=== PATIENT | female | born 1960 | race Caucasian/White ===

== ENCOUNTER → 2017-04-02 | Outpatient (CLI) | payer BC | END | disposition home or self-care (01) | LOC: C.PAPS 11:47 | PROVIDERS: ATTEND Obstetrics & Gynecology | DX: Z01.419 Encounter for gynecological examination (general) (routine) without abnormal findings (principal) ==

== ENCOUNTER → 2017-04-09 | Outpatient (CLI) | payer BC ==
--- NOTE | 2017-04-10 15:17 | MAMMOGRAPHY REPORT ---
BILATERAL DIGITAL SCREENING MAMMOGRAM TOMOSYNTHESIS WITH CAD: 04/09/2017 CLINICAL HISTORY: Routine screening examination. TECHNIQUE: Breast tomosynthesis in addition to standard 2D mammography was performed. Current study was also evaluated with a Computer Aided Detection (CAD) system. COMPARISON: Comparison is made to exams dated: 02/25/2016 mammogram, 02/18/2015 mammogram, 12/01/2013 kellie mogram, 11/28/2012 mammogram, 11/28/2011 mammogram, and 11/22/2010 mammogram - [facility]. BREAST COMPOSITION: The tissue of both breasts is extremely dense, which lowers the sensitivity of m ammography. FINDINGS: There are benign scattered round and punctate calcifications in both breasts. No suspicio us mass, architectural distortion or cluster of suspicious microcalcifications is seen. IMPRESSION: ACR BI-RADS CATEGORY 2: BENIGN There is no mammographic evidence of malignancy. A 1 year screening mammogram is recommended. The pa tient will receive written notification of the results. Approximately 10% of breast cancers are not detected with mammography. A negative mammographic report should not delay biopsy if a clinically suggestive mass is present. Aditi Boggs M.D. ay/:04/09/2017 16:42:07 Crossbow Maker: Janel REDDY(R)(M), [facility] letter sent: Normal 1/2 BI-RADS Code: ACR BI-RADS Category 2: Benign
== END | disposition home or self-care (01) ==
LOC: C.MAMM 14:18
PROVIDERS: ATTEND Obstetrics & Gynecology
DX: Z12.31 Encounter for screening mammogram for malignant neoplasm of breast (principal)

== ENCOUNTER → 2017-07-28 | Outpatient (CLI) | payer OTHER ==
--- NOTE | 2017-07-28 15:30 | DIAGNOSTIC IMAGING REPORT ---
CHEST 2 VIEWS ROUTINE CLINICAL HISTORY: 57 years-old Female presenting with DIZZINESS,GIDDINESS. TECHNIQUE: PA and lateral views of the chest were obtained. COMPARISON: None. FINDINGS: Atherosclerosis of the aortic arch. Cardiac silhouette normal in size. Lungs and pleural spaces clear. Osseous structures normal. Upper abdomen normal. IMPRESSION: 1. No acute cardiopulmonary disease. Electronically signed by: Elian Jean M.D. 07/28/2017 3:28 PM Dictated Date/Time: 07/28/2017 3:28 PM
== END | disposition home or self-care (01) ==
LOC: C.RAD 15:08
PROVIDERS: ATTEND Family Medicine Hospice and Palliative Medicine
DX: R53.83 Other fatigue (principal); R42 Dizziness and giddiness

== ENCOUNTER 2017-08-04 15:15 | Observation (INO) | payer OTHER ==
[~2017-08-04] VITALS: Ht 157.5 cm; Wt 65.8 kg
[2017-08-04 15:21] VITALS: Ht 157.5 cm; Wt 65.8 kg
[2017-08-04] MEDS ORDERED: SODIUM CHLORIDE 0.9% 1000ML 1,000 ML IV STA ×2 (15:38→17:40)
--- NOTE | 2017-08-04 15:40 | EMERGENCY ROOM VISIT NOTE ---
History Report prepared by Alesha: Nick Dickerson Under the Supervision of: Dr. Figueroa Guerrero M.D. First contact with patient: 15:27 Chief Complaint: RESPIRATORY PROBLEMS Stated Complaint: POSSIBLE PE Nursing Triage Summary: pt reports PCP told pt to come in for eval and treatment of poss PE or PVX, pt reprots cough since 07/18 and has had pain in scapular region X " a couple of days " pt reports increased exertional sob and "feels like heart is racing " History of Present Illness The patient is a 57 year old female who presents to the Emergency Room with complaints of shortness of breath that started prior to arrival. She states she has been sick since 07/18/2017, was seen at the [facility] and was told to come to the ED. She reports lightheadedness. She denies chest pain, weakness in arms and legs, fevers, urinary symptoms, and bowel issues. She denies recent travel, history of cardiac problems, and diabetes. She took prednisone 1 week ago and takes Crestor 10 mg regularly. Of note, the patient has nodules on her thyroid and states her hormones levels have been normal. 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 Review of Systems See HPI for pertinent positives & negatives. A total of 10 systems reviewed and were otherwise negative. Past Medical & Surgical Medical Problems: (1) Dizziness (2) ST segment depression Social History Smoking Status: Never Smoker Marital Status: Housing Status: lives with family Current/Historical Medications Scheduled Metoprolol Tartrate (Lopressor) (Lopressor), 50 MG PO BID Rosuvastatin Calcium (Crestor), 10 MG PO DAILY Allergies Coded Allergies: No Known Allergies (Unverified , 08/04/17) Physical Exam Vital Signs Date Time Temp Pulse Resp B/P (MAP) Pulse Ox O2 Delivery O2 Flow Rate FiO2 08/04/17 19:31 Room Air 08/04/17 18:21 102 20 157/119 98 Room Air 08/04/17 18:14 127 08/04/17 17:48 130 20 170/112 98 Room Air 08/04/17 16:45 127 17 178/116 99 Room Air 08/04/17 16:25 130 08/04/17 15:21 36.8 130 20 187/95 97 Room Air Physical Exam GENERAL: Patient is anxious appearing and in moderate distress. HEENT: No acute trauma, normocephalic atraumatic, mucous membranes moist, no nasal congestion, no scleral icterus. NECK: No stridor, no adenopathy, no meningismus, trachea is midline. LUNGS: Mild SOB. Clear to auscultation and equal bilaterally. No wheeze, no rhonchi. HEART: Tachycardiac. Regular rhythm. No murmurs, rubs, gallops appreciated. ABDOMEN: Soft, nontender, bowel sounds positive, no masses appreciated, no peritonitis. BACK: No midline tenderness, no CVA tenderness EXTREMITIES: Normal motion all extremities, no cyanosis, no edema. NEUROLOGIC: Alert and oriented, no acute motor or sensory deficits, no focal weakness, cranial nerves grossly intact. SKIN: No rash, no jaundice, no diaphoresis. Medical Decision & Procedures ER Provider Diagnostic Interpretation: Radiology results and stated below per my review and radiologist interpretation: CHEST ONE VIEW PORTABLE CLINICAL HISTORY: Chest pain. COMPARISON STUDY: Chest radiograph July 28, 2017. FINDINGS: Lung volumes are normal. Lungs are clear. There is no evidence for pulmonary edema. Cardiomediastinal silhouette is normal. Pulmonary vascularity is normal. IMPRESSION: No acute cardiopulmonary findings. Electronically signed by: Jt Zazueta M.D. 08/04/2017 5:08 PM Dictated Date/Time: 08/04/2017 5:[address] ANGIOGRAPHY OF THE CHEST, PULMONARY EMBOLUS PROTOCOL CLINICAL HISTORY: Tachycardia and short of breath. COMPARISON STUDY: Chest radiograph July 28, 2017. TECHNIQUE: Following IV administration of 108 mL of Optiray-320, helical axial images of the chest were obtained utilizing the pulmonary embolus protocol. Maximal intensity projections and sagittal and coronal reformats were viewed on an independent 3D workstation. IV contrast was administered without complication. A dose lowering technique was utilized adhering to the principles of ALARA. CT DOSE: 320.25 mGy.cm FINDINGS: No pulmonary emboli are identified although the segmental and subsegmental pulmonary arteries are suboptimally assessed due to respiratory motion. The size of the heart is normal. There is no pericardial effusion. There is no evidence for thoracic aortic dissection. There is no thoracic lymphadenopathy. The central airways are patent. There is no consolidation to suggest pneumonia. No pneumothorax or pleural effusion is noted. Bony thorax and upper abdomen are unremarkable. IMPRESSION: 1. No pulmonary emboli identified although segmental and subsegmental pulmonary arteries suboptimally assessed due to respiratory motion. 2. No acute intrathoracic findings. Electronically signed by: Jt Zazueta M.D. 08/04/2017 5:18 PM Dictated Date/Time: 08/04/2017 5:10 PM Laboratory Results Test 08/04/17 15:35 08/04/17 15:48 Immature Granulocyte % (Auto) 0.4 % White Blood Count 8.51 K/uL (4.8-10.8) Red Blood Count 4.91 M/uL (4.2-5.4) Hemoglobin 15.0 g/dL (12.0-16.0) Hematocrit 43.7 % (37-47) Mean Corpuscular Volume 89.0 fL (80-100) Mean Corpuscular Hemoglobin 30.5 pg (25-34) Mean Corpuscular Hemoglobin Concent 34.3 g/dl (32-36) Platelet Count 311 K/uL (130-400) Mean Platelet Volume 8.9 fL (7.4-10.4) Neutrophils (%) (Auto) 60.7 % Lymphocytes (%) (Auto) 28.8 % Monocytes (%) (Auto) 9.2 % Eosinophils (%) (Auto) 0.8 % Basophils (%) (Auto) 0.1 % Neutrophils # (Auto) 5.17 K/uL (1.4-6.5) Lymphocytes # (Auto) 2.45 K/uL (1.2-3.4) Monocytes # (Auto) 0.78 K/uL (0.11-0.59) Eosinophils # (Auto) 0.07 K/uL (0-0.5) Basophils # (Auto) 0.01 K/uL (0-0.2) Immature Granulocyte # (Auto) 0.03 K/uL (0.00-0.02) Erythrocyte Sedimentation Rate 14 mm/hr (0-21) C-Reactive Protein < 0.29 mg/dl (0-0.29) Thyroid Stimulating Hormone (TSH) 2.440 uIu/ml (0.300-4.500) Bedside Hemoglobin 15.0 g/dl (12.0-16.0) Bedside Hematocrit 44 % (37-47) Bedside Sodium 143 mEq/L (135-144) Bedside Potassium 3.4 mEq/L (3.3-5.0) Bedside Chloride 102 mEq/L (101-112) Bedside Total CO2 25 mEq/l (24-31) Bedside Blood Urea Nitrogen 8 mg/dl (7-18) Bedside Creatinine 0.6 mg/dl (0.6-1.3) Bedside Glucose (other) 134 mg/dl (70-99) Bedside Ionized Calcium (Enedina) 1.10 mmol/l (1.12-1.32) Laboratory results as reviewed by me. Medications Administered Medications (Trade) Dose Ordered Sig/Becca Route Start Time Stop Time Status Last Admin Dose Admin Sodium Chloride 1,000 ml @ 999 mls/hr Q1H1M STAT IV 08/04/17 15:38 08/04/17 16:38 DC 08/04/17 15:38 999 MLS/HR Sodium Chloride 1,000 ml @ 999 mls/hr Q1H1M STAT IV 08/04/17 17:40 08/04/17 18:40 DC 08/04/17 17:53 999 MLS/HR Adenosine (Adenosine Iv) 6 mg NOW STAT IV 08/04/17 17:48 08/04/17 17:49 DC 08/04/17 17:52 6 MG Metoprolol Tartrate (Lopressor Iv) 5 mg NOW STAT IV 08/04/17 18:04 08/04/17 18:05 DC 08/04/17 18:14 5 MG ECG Per My Interpretation Indication: SOB/dyspnea Rate (beats per minute): 131 Rhythm: sinus tachycardia Findings: ST elevation, no ectopy, other (Deep lateral ST depression. No ST elevation.) Change: EKG: Electrocardiogram per my interpretation. ED Course 1527: The patient was evaluated in room C11. A complete history and physical exam was performed. 1730: I checked on the patient and she is tachycardiac. 1740: I discussed the patient's case with Dr. Hardin - Cardiology. He suggests Adenosine; if no success, he suggests to use Lopressor; if minimal or no success, he suggests admission. The patient will be evaluated for further treatment and disposition. The patient will be evaluated for further treatment and disposition. 1830: Upon reevaluation, the patient is doing well. Discussed results and treatment plan with the patient. She verbalized understanding and agreement with the treatment plan. The patient will be evaluated for further management. Medical Decision Differential: Infectious, Reactive Airway Disease, Pneumonia, Pneumothorax, COPD , CHF, ACS, Pulmonary Embolism, MSK, GI, Dissection, amongst other etiologies entertained. Pleasant 57 yr old female with flu like illness 2 weeks ago, then post treatment with prednisone. Arrives with worsening SHOB, dyspnea and fatigue. Quite tachy with variable HR 120-130 and essentially stuck in that range. Tremulous which is chronic for patient. Given 2 L NSS without much change in HR. EKG with deep lateral depressions without chest pain. Initial Trop negative. With symptoms felt imaging required and not low risk for dimer. Fortunately CT PE negative. Labs unremarkable otherwise. TSH OK and unlikely toxidrome given. Reviewed with cards and after tried Adenosine which resulted in short heart block, mild widening of P to P distance then back to tachycardia. Given Lopressor with vast improvement in HR. Suspect this is catecholamine response secondary to prednisone use, however with EKG depressions and Cards input seems reasonable to bring in for further work-up and evaluation. Family comfortable with this plan. Discussed over cell phone with Daughter who is physician. Medication Reconcilliation Current Medication List: was personally reviewed by me Blood Pressure Screening Patient's blood pressure: Elevated blood pressure Blood pressure disposition: Elevated BP felt to be situational Consults Time Called: 1730 Consulting Physician: Dr. Hardin - Cardiology Returned Call: 1740 Discussed the patient's case with Dr. Hardin. He suggests Adenosine; if no success, he suggests to use Lopressor; if minimal or no success, he suggests admission. The patient will be evaluated for further treatment and disposition. Impression Primary Impression: Tachycardia Additional Impressions: Catecholamine Response Hypertension Scribe Attestation The scribe's documentation has been prepared under my direction and personally reviewed by me in its entirety. I confirm that the note above accurately reflects all work, treatment, procedures, and medical decision making performed by me. Departure Information Prescriptions Metoprolol Tartrate (Lopressor) (Lopressor) 50 Mg Tab 50 MG PO BID, #60 TAB Prov: Mario Bowen D.O. 08/05/17 Referrals Pro,Jeet Murry M.D. (PCP) Patient Instructions [facility] Problem Qualifiers
[2017-08-04 15:50] LABS: BASO % 0.1 %; BASO ABS # 0.01 K/uL (0-0.2); EOS % 0.8 %; EOS ABS # 0.07 K/uL (0-0.5); HEMATOCRIT 43.7 % (37-47); IG# 0.03 K/uL (0.00-0.02); LYMPH % 28.8 %; LYMPH ABS # 2.45 K/uL (1.2-3.4); MEAN CORPUSCULAR HEMOGLOBIN 30.5 pg (25-34); MEAN CORPUSCULAR HGB CONC 34.3 g/dl (32-36); MEAN PLATELET VOLUME 8.9 fL (7.4-10.4); MONO % 9.2 %; MONO ABS # 0.78 K/uL (0.11-0.59); NEUT % 60.7 %; NEUT ABS # 5.17 K/uL (1.4-6.5); PLATELET COUNT 311 K/uL (130-400); RED CELL DISTRIBUTION WIDTH CV 12.3 % (11.5-14.5); RED CELL DISTRIBUTION WIDTH SD 39.2 fL (36.4-46.3); WHITE BLOOD COUNT 8.51 K/uL (4.8-10.8)
[2017-08-04 16:00] LABS: ISTAT CREATININE 0.6 mg/dl (0.6-1.3); ISTAT IONIZED CALCIUM 1.1 mmol/l (1.12-1.32); ISTAT POTASSIUM 3.4 mEq/L (3.3-5.0)
[2017-08-04] MEDS ORDERED: OPTIRAY 320 IV PRN (16:00)
[2017-08-04 16:07] LABS: BLOOD UREA NITROGEN 8 mg/dl (7-18); CARBON DIOXIDE 26 mmol/L (21-32); CREATININE 0.81 mg/dl (0.60-1.20); GLUCOSE 128 mg/dl (70-99); POTASSIUM 3.3 mmol/L (3.5-5.1); SODIUM 140 mmol/L (136-145)
[2017-08-04] MEDS ORDERED: CRS/10 PO (16:20)
--- NOTE | 2017-08-04 17:09 | DIAGNOSTIC IMAGING REPORT ---
CHEST ONE VIEW PORTABLE CLINICAL HISTORY: Chest pain. COMPARISON STUDY: Chest radiograph July 28, 2017. FINDINGS: Lung volumes are normal. Lungs are clear. There is no evidence for pulmonary edema. Cardiomediastinal silhouette is normal. Pulmonary vascularity is normal. IMPRESSION: No acute cardiopulmonary findings. Electronically signed by: Jt Zazueta M.D. 08/04/2017 5:08 PM Dictated Date/Time: 08/04/2017 5:07 PM
--- NOTE | 2017-08-04 17:19 | DIAGNOSTIC IMAGING REPORT ---
CT ANGIOGRAPHY OF THE CHEST, PULMONARY EMBOLUS PROTOCOL CLINICAL HISTORY: Tachycardia and short of breath. COMPARISON STUDY: Chest radiograph July 28, 2017. TECHNIQUE: Following IV administration of 108 mL of Optiray-320, helical axial images of the chest were obtained utilizing the pulmonary embolus protocol. Maximal intensity projections and sagittal and coronal reformats were viewed on an independent 3D workstation. IV contrast was administered without complication. A dose lowering technique was utilized adhering to the principles of ALARA. CT DOSE: 320.25 mGy.cm FINDINGS: No pulmonary emboli are identified although the segmental and subsegmental pulmonary arteries are suboptimally assessed due to respiratory motion. The size of the heart is normal. There is no pericardial effusion. There is no evidence for thoracic aortic dissection. There is no thoracic lymphadenopathy. The central airways are patent. There is no consolidation to suggest pneumonia. No pneumothorax or pleural effusion is noted. Bony thorax and upper abdomen are unremarkable. IMPRESSION: 1. No pulmonary emboli identified although segmental and subsegmental pulmonary arteries suboptimally assessed due to respiratory motion. 2. No acute intrathoracic findings. Electronically signed by: Jt Zazueta M.D. 08/04/2017 5:18 PM Dictated Date/Time: 08/04/2017 5:10 PM
[2017-08-04] MEDS ORDERED: ADENOSINE IV SOLN 3 MG/ML 2 ML VIAL IV STA (17:48)
[2017-08-04] MEDS ORDERED: METOPROLOL TARTRATE 1 MG/ML VIAL IV STA (18:04)
--- NOTE | 2017-08-04 18:24 | History and Physical ---
History & Physical Date & Time of Service: Aug 04, 2017 at 18:24 Chief Complaint: Dizziness Primary Care Physician: Jeet West M.D. History of Present Illness Source: patient Pleasant 57 yo female, who is a poor historian. It is very difficult to obtain information from her as she jumps from different points of her history and sometimes does not answer the questions. She appears anxious. Her is in the room and does help with the history. She says she has had intermittent dizziness for the past week. However, at 9 am today, patient reports feeling of lightheadedness when she was feeding her cats (friends). She denies vertigo, only complained of dizziness and like she was going to fall. She was unable to describe duration. she states it may have been a few minutes. The episode subsided but due to the fact that his has been ongoing, she decieded to call her and come to the [facility]. And there recommended to come to the ED. She states that she was recently given prednsione for 5 days which ended on for a possible bronchitis. She also states that she is very active and recently had a brisk 50 minute walk which she tolerated without a problem yesterday. Past Medical History 1.Dyslipidemia 2. History of asthma (Z87.09) 3. History of hypothyroidism (Z86.39) 4. History of varicella (Z86.19) 5. H/O fatty liver Surgical History 1. History of Biopsy Breast Open 2. History of Biopsy Thyroid Using Percutaneous Core Needle 3. History of Oral Surgery Tooth Extraction Family History 1. Family history of Lung Cancer 2. Family history of Cardiovascular Disorder Social History Alcohol Marital History - Currently Never smoker Parentage Uses Safety Equipment - Seatbelts Current Meds 1. Rosuvastatin Calcium 10 MG Oral Tablet; TAKE 1 TABLET DAILY Allergies 1. Bactrim TABS Family History as stated above. Social History Smoking Status: Never Smoker Alcohol Use: socially Marital Status: Immunizations History of Influenza Vaccine: Unknown History of Tetanus Vaccine?: Unknown History of Pneumococcal: Unknown History of Hepatitis B Vaccine: Unknown Multi-Drug Resistant Organisms History of MDRO: No Allergies Coded Allergies: No Known Allergies (Unverified , 08/04/17) Home Medications Scheduled Rosuvastatin Calcium (Crestor), 10 MG PO DAILY Review of Systems Constitutional: No fever, No chills Eyes: No worsening of vision ENT: No hearing loss, No unusual epistaxis Respiratory: + cough, No sputum, No wheezing Cardiovascular: No chest pain, No orthopnea Abdomen: No pain, No nausea Musculoskeletal: No joint pain, No muscle pain Neurologic: + problem reported (dizziness), No memory loss, No paralysis, No weakness Psychiatric: No depression symptoms, No anhedonism Endocrine: No fatigue Hematologic / Lymphatic: No abnormal bleeding/bruising Integumentary: No rash Allergic / Immunologic: No environmental allergies Physical Exam Vital Signs Date Time Temp Pulse Resp B/P (MAP) Pulse Ox O2 Delivery O2 Flow Rate FiO2 08/04/17 18:21 102 20 157/119 98 Room Air 08/04/17 18:14 127 08/04/17 17:48 130 20 170/112 98 Room Air 08/04/17 16:45 127 17 178/116 99 Room Air 08/04/17 16:25 130 08/04/17 15:21 36.8 130 20 187/95 97 Room Air General Appearance: WD/WN, no apparent distress Head: normocephalic Eyes: normal inspection ENT: normal ENT inspection, hearing grossly normal Neck: supple, no adenopathy Respiratory/Chest: chest non-tender, lungs clear, normal breath sounds Cardiovascular: no edema, + tachycardia (sinus tachycardia) Abdomen/GI: normal bowel sounds, non tender, soft Back: normal inspection Neurologic/Psych: risk assessment analyst II-XII nml as tested, alert, oriented x 3 Skin: normal color Lymphatic: no adenopathy Diagnostics Laboratory Results Results Past 24 Hours Test 08/04/17 15:35 08/04/17 15:48 Range/Units White Blood Count 8.51 4.8-10.8 K/uL Red Blood Count 4.91 4.2-5.4 M/uL Hemoglobin 15.0 12.0-16.0 g/dL Hematocrit 43.7 37-47 % Mean Corpuscular Volume 89.0 80-100 fL Mean Corpuscular Hemoglobin 30.5 25-34 pg Mean Corpuscular Hemoglobin Concent 34.3 32-36 g/dl Platelet Count 311 130-400 K/uL Mean Platelet Volume 8.9 7.4-10.4 fL Neutrophils (%) (Auto) 60.7 % Lymphocytes (%) (Auto) 28.8 % Monocytes (%) (Auto) 9.2 % Eosinophils (%) (Auto) 0.8 % Basophils (%) (Auto) 0.1 % Neutrophils # (Auto) 5.17 1.4-6.5 K/uL Lymphocytes # (Auto) 2.45 1.2-3.4 K/uL Monocytes # (Auto) 0.78 0.11-0.59 K/uL Eosinophils # (Auto) 0.07 0-0.5 K/uL Basophils # (Auto) 0.01 0-0.2 K/uL RDW Standard Deviation 39.2 36.4-46.3 fL RDW Coefficient of Variation 12.3 11.5-14.5 % Immature Granulocyte % (Auto) 0.4 % Immature Granulocyte # (Auto) 0.03 0.00-0.02 K/uL Erythrocyte Sedimentation Rate 14 0-21 mm/hr Sodium Level 140 136-145 mmol/L Potassium Level 3.3 3.5-5.1 mmol/L Chloride Level 104 98-107 mmol/L Carbon Dioxide Level 26 21-32 mmol/L Anion Gap 11.0 20.0 16-25 mmol/L Blood Urea Nitrogen 8 7-18 mg/dl Creatinine 0.81 0.60-1.20 mg/dl Est Creatinine Clear Calc Drug Dose 68.4 ml/min Estimated GFR () 92.8 Estimated GFR (Non- 80.1 BUN/Creatinine Ratio 10.4 10-20 Random Glucose 128 70-99 mg/dl Calcium Level 9.0 8.5-10.1 mg/dl Troponin I < 0.015 0-0.045 ng/ml C-Reactive Protein < 0.29 0-0.29 mg/dl Thyroid Stimulating Hormone (TSH) 2.440 0.300-4.500 uIu/ml Bedside Hemoglobin 15.0 12.0-16.0 g/dl Bedside Hematocrit 44 37-47 % Bedside Sodium 143 135-144 mEq/L Bedside Potassium 3.4 3.3-5.0 mEq/L Bedside Chloride 102 101-112 mEq/L Bedside Total CO2 25 24-31 mEq/l Bedside Blood Urea Nitrogen 8 7-18 mg/dl Bedside Creatinine 0.6 0.6-1.3 mg/dl Bedside Glucose (other) 134 70-99 mg/dl Bedside Ionized Calcium (Enedina) 1.10 1.12-1.32 mmol/l Diagnostic Radiology CHEST ONE VIEW PORTABLE CLINICAL HISTORY: Chest pain. COMPARISON STUDY: Chest radiograph July 28, 2017. FINDINGS: Lung volumes are normal. Lungs are clear. There is no evidence for pulmonary edema. Cardiomediastinal silhouette is normal. Pulmonary vascularity is normal. IMPRESSION: No acute cardiopulmonary findings. EKG Sinus tachycardia Possible Left atrial enlargement ST & T wave abnormality, consider anterior ischemia Abnormal ECG No previous ECGs available Impression Assessment and Plan Hypertensive Urgency in the setting Lightheadedness with mild SOB on exertion and at rest in a 57 yo female with dyslipidemia will admit under obs Unsure as to the history of SOB as patient has been active over the course of this week, Example: walking over 50 minutes yesterday. will monitor torponin x3 will obtain echo will consult cardio will treat hypertension with goal of decreasing BP by 25% Main objective issue found on the hsitory was her elevated hypertension. Patient received 5 mg of IV labetalol and will receive and additional 5 mg by me as her SBP was above 175 and diastolic above 100. Likely uncontrolled hypertension management as noted above. Dyslipidemia continue home meds. Level of Care Telemetry Advanced Directives Existing Advance Directive: No Existing Living Will: No Existing Power of Automation Tender: No Resuscitation Status FULL RESUSCITATION VTE Prophylaxis VTE Risk Assessment Done? Y/N: Yes Risk Level: Very Low Given or contraindicated: Treatment not indicated (likely short hospital stay) Social Service Consult None Apply
[2017-08-04] MEDS ORDERED: ASPIRIN 325 MG ECTAB PO ONE (19:45)
[2017-08-04] MEDS ORDERED: IV FLUIDS COMPLETED PRN (20:15)
[2017-08-04] MEDS ORDERED: NURSING VERBAL MED ORDER STA (20:42)
[2017-08-04] MEDS ORDERED: METOPROLOL TARTRATE 1 MG/ML VIAL ONE (20:47)
[2017-08-04] MEDS ORDERED: ROSUVASTATIN CALCIUM 10 MG TAB PO SCH (21:00)
[2017-08-04] MEDS ORDERED: METOPROLOL TARTRATE 1 MG/ML VIAL IV ONE (21:00)
[2017-08-04 21:35] VITALS: BP 148/103
[2017-08-04 22:39] LABS: INFLUENZA A PCR Neg for Influ A (NEG); INFLUENZA B PCR Neg for Influ B (NEG)
[2017-08-04 23:33] VITALS: BP 129/86; PULSE 99; TEMP 37.3; O2SAT 97
[2017-08-05] VITALS (11 sets, daily range): BP systolic 147–162; BP diastolic 97–111; PULSE 80–112; TEMP 36.9–37.6; O2SAT 97–98
[2017-08-05] MEDS ORDERED: LABETALOL HCL IV 5 MG/ML 20ML IV PRN (04:45)
[2017-08-05] MEDS ORDERED: LABETALOL HCL IV 5 MG/ML 20ML IV ONE (04:50)
[2017-08-05 07:29] LABS: HEMATOCRIT 39.4 % (37-47); HEMOGLOBIN 13.8 g/dL (12.0-16.0); MEAN CELL VOLUME 87.8 fL (80-100); MEAN CORPUSCULAR HEMOGLOBIN 30.7 pg (25-34); MEAN PLATELET VOLUME 8.7 fL (7.4-10.4); PLATELET COUNT 263 K/uL (130-400); RED CELL DISTRIBUTION WIDTH CV 12.4 % (11.5-14.5); RED CELL DISTRIBUTION WIDTH SD 39.8 fL (36.4-46.3); WHITE BLOOD COUNT 7.59 K/uL (4.8-10.8)
[2017-08-05] MEDS ORDERED: METOPROLOL TARTRATE 25 MG TAB PO ONE (07:45)
[2017-08-05 08:05] LABS: CALCIUM 8.9 mg/dl (8.5-10.1); CREATININE 0.6 mg/dl (0.60-1.20); POTASSIUM 3.5 mmol/L (3.5-5.1)
[2017-08-05] MEDS ORDERED: METOPROLOL TARTRATE 25 MG TAB PO SCH ×2 (09:00→21:00)
--- NOTE | 2017-08-05 10:57 | Cardiology Consultation ---
Cardiology Consultation Date of Consultation: Aug 05, 2017. Requesting Physician: Dr. López Reason for Consultation: Tachycardia Pt evaluation today including: conversation w/ patient, conversation w/ family , physical exam, lab review, review of studies, review of inpatient medication list, conversation w/ attending History of Present Illness This is a very pleasant 57-year-old woman who presented yesterday with tachycardia. On my evaluation today her was present, her daughter is a resident in psychiatry and she was part of the conversation via a speaker cell phone connection. It seems that she has been feeling poorly for about 2 weeks, she has a feeling of lightheadedness although not presyncope and she has not had syncope. She has not been exercising regularly (normally she walks regularly) but did walk several days ago and did not have difficulty with that. She has been seen several times in the [facility] outpatient acute clinic, but I have not seen those records. She was treated with prednisone for 5 days, that stopped about 3 days ago. She does not feel that she has had a fever although she is not sure, she has not had orthopnea or PND or peripheral edema, she has not had exertional chest discomfort. She is not very aware of her heart rate, she knows she has been told that it is high but she cannot really describe it to me. She does not recall having a high heart rate in the past. Of note review of her outpatient office vital signs do not demonstrate a fast heart rate. In the emergency room she received adenosine which caused AV block but did not alter her heart rate, which was a sinus rate at about 130 bpm evidently. She was given beta-blockade on several occasions which did reduce her rate somewhat. Her blood pressure is also been quite elevated here, she reports that she has not had blood pressure elevation in the past and that is confirmed by outpatient records. Past Medical/Surgical History Hypercholesterolemia Thyroid nodules Social History Smoking Status: Never Smoker History of Alcohol Use: No Review of Systems Constitutional: No fever, No weight loss, No weakness Respiratory: No cough, No wheezing, No shortness of breath, No dyspnea on exertion Cardiac: No chest pain, No orthopnea, No PND, No edema, No palpitations Abdomen: No pain, No nausea, No vomiting, No diarrhea, No GI bleeding Female : No problem reported Neurologic: No paralysis, No weakness, No numbness/tingling, No balance problems Heme: No abnormal bleeding/bruising, No clotting problems Endo: No fatigue Skin: No problem reported All Other Systems: Reviewed and Negative Allergies Coded Allergies: No Known Allergies (Unverified , 08/04/17) Medications Current Inpatient Medications Medications (Trade) Dose Ordered Sig/Becca Route Start Time Stop Time Status Last Admin Dose Admin Ioversol (Optiray 320) 100 ml UD PRN IV 08/04/17 16:00 08/08/17 15:59 Rosuvastatin Calcium (Crestor Tab) 10 mg HS PO 08/04/17 21:00 09/03/17 20:59 08/04/17 22:34 10 MG Miscellaneous (Iv Fluids Completed) 1 ea PRN PRN N/A 08/04/17 20:15 08/04/18 20:14 Labetalol HCl (Normodyne IV) 5 mg Q4H PRN IV 08/05/17 04:45 09/04/17 04:44 Metoprolol Tartrate (Lopressor Tab) 25 mg BID PO 08/05/17 21:00 09/04/17 20:59 Physical Exam Vital Signs Past 12 Hours Date Time Temp Pulse Resp B/P (MAP) Pulse Ox O2 Delivery O2 Flow Rate FiO2 08/05/17 09:33 154/111 (125) 08/05/17 08:37 37.6 106 16 158/106 (123) 97 Room Air 08/05/17 08:00 Room Air 08/05/17 05:59 91 151/103 (119) 08/05/17 05:05 94 160/108 (125) 08/05/17 04:26 37.2 112 18 150/102 (118) 98 Room Air 08/05/17 04:00 97 Room Air 08/05/17 00:00 97 Room Air 08/04/17 23:33 37.3 99 18 129/86 (100) 97 Room Air Constitutional: General Apperance: heathly-appearing Level of Distress: NAD Psychiatric: Mental Status: active & alert Head: normocephalic Eyes: EOM: EOMI ENMT: normal ENT inspection, hearing grossly normal Neck: supple, no masses Lungs: Respiratory effort: no dyspnea, good air movement Auscultation: breath sounds normal, no wheezing Cardiovascular: Heart Auscultation: RRR, no murmurs, no rubs, no gallops, tachycardia Peripheral Pulses: Bruits: none appreciated Abdomen: Bowel Sounds: normal Inspection & Palpation: soft, no tenderness, guarding & rebound, no masses Musculoskeletal: normal strength (5/5 throughout) Extremities: no edema Neurologic: Cranial Nerves: grossly intact Sensation: grossly intact Data Laboratory Results: Last 24 Hours Test 08/04/17 15:35 08/04/17 15:48 08/04/17 21:15 08/04/17 22:56 White Blood Count 8.51 K/uL Red Blood Count 4.91 M/uL Hemoglobin 15.0 g/dL Hematocrit 43.7 % Mean Corpuscular Volume 89.0 fL Mean Corpuscular Hemoglobin 30.5 pg Mean Corpuscular Hemoglobin Concent 34.3 g/dl Platelet Count 311 K/uL Mean Platelet Volume 8.9 fL Neutrophils (%) (Auto) 60.7 % Lymphocytes (%) (Auto) 28.8 % Monocytes (%) (Auto) 9.2 % Eosinophils (%) (Auto) 0.8 % Basophils (%) (Auto) 0.1 % Neutrophils # (Auto) 5.17 K/uL Lymphocytes # (Auto) 2.45 K/uL Monocytes # (Auto) 0.78 K/uL Eosinophils # (Auto) 0.07 K/uL Basophils # (Auto) 0.01 K/uL RDW Standard Deviation 39.2 fL RDW Coefficient of Variation 12.3 % Immature Granulocyte % (Auto) 0.4 % Immature Granulocyte # (Auto) 0.03 K/uL Erythrocyte Sedimentation Rate 14 mm/hr Sodium Level 140 mmol/L Potassium Level 3.3 mmol/L Chloride Level 104 mmol/L Carbon Dioxide Level 26 mmol/L Anion Gap 11.0 mmol/L 20.0 mmol/L Blood Urea Nitrogen 8 mg/dl Creatinine 0.81 mg/dl Est Creatinine Clear Calc Drug Dose 68.4 ml/min Estimated GFR () 92.8 Estimated GFR (Non- 80.1 BUN/Creatinine Ratio 10.4 Random Glucose 128 mg/dl Calcium Level 9.0 mg/dl Troponin I < 0.015 ng/ml < 0.015 ng/ml C-Reactive Protein < 0.29 mg/dl Thyroid Stimulating Hormone (TSH) 2.440 uIu/ml Bedside Hemoglobin 15.0 g/dl Bedside Hematocrit 44 % Bedside Sodium 143 mEq/L Bedside Potassium 3.4 mEq/L Bedside Chloride 102 mEq/L Bedside Total CO2 25 mEq/l Bedside Blood Urea Nitrogen 8 mg/dl Bedside Creatinine 0.6 mg/dl Bedside Glucose (other) 134 mg/dl Bedside Ionized Calcium (Enedina) 1.10 mmol/l Influenza Type A (RT-PCR) Neg for Influ A Influenza Type B (RT-PCR) Neg for Influ B Test 08/05/17 06:52 White Blood Count 7.59 K/uL Red Blood Count 4.49 M/uL Hemoglobin 13.8 g/dL Hematocrit 39.4 % Mean Corpuscular Volume 87.8 fL Mean Corpuscular Hemoglobin 30.7 pg Mean Corpuscular Hemoglobin Concent 35.0 g/dl RDW Standard Deviation 39.8 fL RDW Coefficient of Variation 12.4 % Platelet Count 263 K/uL Mean Platelet Volume 8.7 fL Sodium Level 139 mmol/L Potassium Level 3.5 mmol/L Chloride Level 105 mmol/L Carbon Dioxide Level 25 mmol/L Anion Gap 9.0 mmol/L Blood Urea Nitrogen 7 mg/dl Creatinine 0.60 mg/dl Est Creatinine Clear Calc Drug Dose 91.0 ml/min Estimated GFR () 116.4 Estimated GFR (Non- 100.5 BUN/Creatinine Ratio 12.4 Random Glucose 116 mg/dl Calcium Level 8.9 mg/dl Troponin I < 0.015 ng/ml Imaging: Chest x-ray and CT scanning were unremarkable in the emergency room EKG: In the emergency room this appears to represent sinus tachycardia at about 130 bpm, no acute changes, she does have an incomplete right bundle branch block Telemetry reviewed: Sinus tachycardia, the rate has decreased somewhat with beta -doni therapy after her emergency room visit Echocardiography was done this morning, on preliminary review there is no effusion and her ejection fraction appears unremarkable. Full report to follow. Assessment & Plan 1. Tachycardia: The cause of the tachycardia is not clear. It does not seem to be an abnormal rhythm (it appears to be sinus tachycardia not an atrial tachycardia) although it could conceivably be an atrial tachycardia from near the sinus node but the weight is responding to beta blockade would be more consistent with a sinus tachycardia. She is also hypertensive. There does not appear a cardiac reason to cause this (her ejection fraction is good and she does not have an effusion), nor does there seem to be a pulmonary reason (CT scan was negative for PE). 2. Sinus tachycardia and hypertension: It is acting like a high catecholamine state, I do not know why she would have that. In the past she has not been tachycardic or hypertensive in our records, her daughter tells me that in her she is clinic she was not tachycardic or hypertensive until the visit that prompted the visit to the emergency room. I am not sure why she would have this. To confirm and we will need a 24-hour urine collection and I will order that. She apparently has a history of thyroid nodules, her TSH was normal but I am going to get a T4 and T3 to be sure but I do not think this is hyperthyroidism. I am going to increase her beta-doni. Thank you for allowing me to participate in her care.
[2017-08-05] MEDS ORDERED: METOPROLOL TARTRATE 25 MG TAB PO STA (10:58)
[2017-08-05] MEDS ORDERED: METO50TA16 PO (15:37)
--- NOTE | 2017-08-05 15:56 | Discharge Instructions ---
Discharge Instructions Date of Service Aug 05, 2017. Admission Reason for Admission: Dizziness, St Segment Depression Discharge Discharge Diagnosis / Problem: elevated blood pressure, elevated heart rate Discharge Goals Goal(s): Diagnostic testing, Therapeutic intervention Activity Recommendations Activity Limitations: resume your previous activity . Instructions / Follow-Up Instructions / Follow-Up elevated blood pressure and heart rate -fortunately the workup thus far has not shown much of anything significant, raising the probability that this is a transient problem in some way related to your recent run of respiratory illnesses and recent course of steroids. the CT of your chest did not show any findings of blood clot or pneumonia, the echocardiogram (while the full read is pending) did not show anything worrisome as far as heart function/valves to Dr Hardin's review, and your cardiac enzymes did not show any worrisome findings that would be consistent to strain/ damage to your heart -besides the above, the ongoing investigation at this point will include: -finishing the 24 hour urine testing - this is to look for a functional adrenal tumor called a pheochromocytoma. these secrete "adrenaline" at random and can cause spikes in blood pressure/heart rate as you experienced. in general, however, these are quite rare so while it's definitely worth looking into given your symptoms, it's also quite unlikely to be the culprit -repeat thyroid testing and follow up - conventionally we check TSH and free T4 to evaluate thyroid function - both of these were normal, but your free T3 was also checked and was actually about 0.5 above the upper limits of normal. with your TSH and free T4 being normal it's more than likely that this is a "lab abnormality instead of a disease process" it's certainly plausible that if you were in the midst of alexei's thyroiditis, there can be phases where people are temporarily hyperthyroid. we'll want to follow this up with repeat thyroid bloodwork (and antibodies that can screen for hashimotos) in about 4 weeks -for now we'll manage the symptoms / blood pressure / and heart rate with metoprolol - a beta doni medication that works to slow heart rate and lower blood pressure. typically if people have side effects it would be feeling fatigued/sluggish/lightheaded - although fortunately these are things we actually don't see that often. as the workup progresses, Dr West will also keep an eye on your heart rate/blood pressure readings, and if this turns out to be a transient process related to having been sick/on steroids, he'll then probably be able to start to wean down and then stop the metoprolol over a few weeks. if he's not able to do so in ~2-4 weeks, then it would definitely be worth revisiting other diagnostic possibilities -follow your blood pressure 3-4 times a day at random times, and write the numbers down. this will help you and Dr West know where things are at / where they appear to be headed with the heart rate and blood pressure. also if you' re feeling anything odd that seems to correlate with your pressures, definitely record that to review with Dr West as well -"hypertensive urgencies" (the blood pressure acutely causing problems because of being high) are fortunately fairly rare -- so it's quite unlikely that this will happen. when they do happen, they're almost unheard of without blood pressures in the 180/100 or higher range. typically they fall into 2 main categories - cerebrovascular and cardiovascular - and the cerebrovascular either present as headache/blurred vision/confusion or stroke like symptoms ( sudden numbness/weakness of one half/one part of the body along with slurred speech) and the cardiovascular present as chest pain/tightness/pressure and/or swelling/shortness of breath. i don't expect any of this to happen to you, but it's always better to know specifically what to watch for abnormal EKG -when your heart rate was going 130, your EKG looked a little like the anterior wall of your heart wasn't getting enough blood flow. however, outside of your cholesterol (which is being treated), you're fairly low risk to have coronary artery disease. on top of that, your troponin levels being negative for three sets throughout your stay, combined with how long your heart was likely racing before it finally slowed down, makes it less likely that the EKG changes we saw were truly indicative of poor blood flow. that said, coronary disease is common enough that it's worth ruling out in a more definitive sense - we'll be setting up a stress-echocardiogram (where you run on the treadmill and in addition to looking for EKG changes they do an echo pre-stress and at peak stress to look for any part of the heart wall that doesn't work). as we discussed, this wouldn't be central to your symptoms since coronary blockages wouldn't be a cause for high heart rate/high blood pressure. our nurse navigator will be setting this up - expect a call in the next day or so with date/time if you have further questions/problems or it seems like any of the above is "slipping through the cracks" give our office a call - [phone] - and then Caryn can pass things along / we can make sure things are still moving forward properly for you Current Hospital Diet Patient's current hospital diet: Regular Diet Discharge Diet Recommended Diet: Regular Diet Pending Studies Studies pending at discharge: yes List of pending studies: above noted studies being carried through as outpatient Laboratory Results Hemoglobin A1c Test 08/05/17 06:52 Range/Units Medical Emergencies . Who to Call and When: Medical Emergencies: If at any time you feel your situation is an emergency, please call 911 immediately. . Non-Emergent Contact Non-Emergency issues call your: Primary Care Provider . . "Provider Documentation" section prepared by Mario Bowen. . VTE Core Measure Inpt VTE Proph given/why not?: Treatment not indicated (likely short hospital stay)
--- NOTE | 2017-08-05 17:06 | ECHOCARDIOGRAM REPORT ---
*NOTICE TO RECEIVING LIBERTARIAN AGENCY This information is strictly Confidential and protected under [place] law. [place] law prohibits you from making any further disclosure of this information unless further disclosure is expressly permitted by the written consent of the person to whom it pertains or is authorized by law. A general authorization for the release of medical or other information is not sufficient for this purpose. Hospital accepts no responsibility if the information is made available to any other person, INCLUDING THE PATIENT. Interpretation Summary * Name: JENNIFFER JOHNSON Study Date: 08/05/2017 07:36 AM BP: 151/103 mmHg * Patient Location: C.2T\S\E220\S\1 HR: 87 * : 1960 (M/d/yyyy) Gender: Female Height: 62 in * Age: 57 yrs Ethnicity: [place] Weight: 149 lb * Ordering Physician: Isaak López * Referring Physician: Self, Referred * Performed By: Maksim Rubalcava RDCS * * Reason For Study: Dizziness, SOB, EKG changes * BSA: 1.7 m2 * -- Conclusions -- * 1. Normal LV size. Normal LV wall thickness. * 2. Normal LV systolic function. LVEF 60-65%. No regional wall motion abnormalities. * 3. Normal RV size and function. * 4. No significant valvular pathology. * 5. Normal estimated PA and RA pressures. * 6. No prior studies for comparison. Procedure Details * A complete two-dimensional transthoracic echocardiogram was performed (2D, M-mode, Doppler and color flow Doppler). * The study was technically adequate. Left Ventricle * The left ventricle is grossly normal size. * There is normal left ventricular wall thickness. * Ejection Fraction = 60-65%. Right Ventricle * The right ventricle is grossly normal size. * The right ventricular systolic function is normal as assessed by tricuspid annular plane systolic excursion (TAPSE) (normal >1.5 cm). Atria * The left atrial size is normal. * Right atrial size is normal. * No ASD detected; PFO is not assessed. Mitral Valve * The mitral valve is grossly normal. * Mitral stenosis is absent. * There is trace mitral regurgitation. Tricuspid Valve * The tricuspid valve is not well visualized, but is grossly normal. * Significant tricuspid regurgitation is absent. Aortic Valve * The aortic valve opens well. * The aortic valve is trileaflet. * No hemodynamically significant valvular aortic stenosis. * There is no significant aortic regurgitation. Pulmonic Valve * The pulmonary valve is inadequately visualized, but the Doppler data is adequate for interpretation. * There is no pulmonic valvular stenosis. * There is no significant pulmonary regurgitation. Great Vessels * The aortic root and proximal ascending aorta are normal sized. Pericardium/Pleural * There is no pericardial effusion. Great Vessels * Normal inferior vena cava size and collapsability with sniff indicates a normal right atrial pressure of 3 mmHg MMode 2D Measurements and Calculations IVSd 0.80 cm IVSs 1.1 cm LVIDd 4.1 cm LVIDs 2.5 cm LVPWd 0.65 cm LVPWs 1.1 cm IVS/LVPW 1.2 FS 38.9 % EDV(Teich) 72.3 ml ESV(Teich) 21.8 ml EF(Teich) 69.9 % EDV(cubed) 66.6 ml ESV(cubed) 15.2 ml EF(cubed) 77.2 % % IVS thick 37.0 % % LVPW thick 70.0 % LV mass(C)d 83.6 grams LV mass(C)dI 49.5 grams/m\S\2 LV mass(C)s 72.7 grams LV mass(C)sI 43.1 grams/m\S\2 SV(Teich) 50.5 ml SI(Teich) 29.9 ml/m\S\2 SV(cubed) 51.5 ml SI(cubed) 30.5 ml/m\S\2 Ao root diam 2.8 cm Ao root area 6.2 cm\S\2 ACS 2.0 cm LA dimension 3.4 cm asc Aorta Diam 3.1 cm LA/Ao 1.2 LVOT diam 1.9 cm LVOT area 2.8 cm\S\2 LVAd ap4 22.7 cm\S\2 LVLd ap4 8.0 cm EDV(MOD-sp4) 52.4 ml EDV(sp4-el) 54.3 ml LVAs ap4 12.9 cm\S\2 LVLs ap4 6.6 cm ESV(MOD-sp4) 21.0 ml ESV(sp4-el) 21.4 ml EF(MOD-sp4) 59.9 % EF(sp4-el) 60.5 % LVAd ap2 24.9 cm\S\2 LVLd ap2 7.9 cm EDV(MOD-sp2) 67.7 ml EDV(sp2-el) 66.5 ml LVAs ap2 13.6 cm\S\2 LVLs ap2 6.2 cm ESV(MOD-sp2) 26.4 ml ESV(sp2-el) 25.3 ml EF(MOD-sp2) 61.1 % EF(sp2-el) 61.9 % LVLd %diff -1.43 % EDV(MOD-bp) 58.9 ml LVLs %diff -6.60 % ESV(MOD-bp) 23.9 ml EF(MOD-bp) 59.5 % SV(MOD-sp4) 31.4 ml SI(MOD-sp4) 18.6 ml/m\S\2 SV(MOD-sp2) 41.4 ml SI(MOD-sp2) 24.5 ml/m\S\2 SV(MOD-bp) 35.1 ml SI(MOD-bp) 20.8 ml/m\S\2 SV(sp4-el) 32.9 ml SI(sp4-el) 19.5 ml/m\S\2 SV(sp2-el) 41.2 ml SI(sp2-el) 24.4 ml/m\S\2 Doppler Measurements and Calculations MV E max lamin 71.7 cm/sec MV A max lamin 120.6 cm/sec MV E/A 0.59 MV dec time 0.16 sec Ao V2 max 156.4 cm/sec Ao max PG 9.8 mmHg Ao max PG (full) 4.2 mmHg MARIBETH(V,A) 2.1 cm\S\2 MARIBETH(V,D) 2.1 cm\S\2 LV V1 max PG 5.6 mmHg LV V1 max 117.9 cm/sec PA V2 max 109.6 cm/sec PA max PG 4.8 mmHg PA acc slope 825.9 cm/sec\S\2 PA acc time 0.10 sec PA pr(Accel) 33.2 mmHg
--- NOTE | 2017-08-05 17:53 | Discharge Summary ---
Discharge Summary Date of Service Aug 05, 2017. Discharge Summary Admission Date: Aug 04, 2017 at 19:33 Discharge Date: Aug 05, 2017 Discharge Disposition: Home Principal Diagnosis: tachycardia / hypertension Immunizations: Have You Had Influenza Vaccine: Unknown History of Tetanus Vaccine?: Unknown History of Pneumococcal: Unknown History of Hepatitis B Vaccine: Unknown Procedures: Interpretation Summary * Name: JENNIFFER JOHNSON Study Date: 08/05/2017 07:36 AM BP: 151/103 mmHg * Patient Location: [facility]\S\E220\S\1 HR: 87 * : 1960 (M/d/yyyy) Gender: Female Height: 62 in * Age: 57 yrs Ethnicity: CA Weight: 149 lb * Ordering Physician: Isaak López * Referring Physician: Self, Referred * Performed By: Maksim Rubalcava RDCS * * Reason For Study: Dizziness, SOB, EKG changes * BSA: 1.7 m2 * -- Conclusions -- * 1. Normal LV size. Normal LV wall thickness. * 2. Normal LV systolic function. LVEF 60-65%. No regional wall motion abnormalities. * 3. Normal RV size and function. * 4. No significant valvular pathology. * 5. Normal estimated PA and RA pressures. * 6. No prior studies for comparison. Procedure Details * A complete two-dimensional transthoracic echocardiogram was performed (2D, M-mode, Doppler and color flow Doppler). * The study was technically adequate. Left Ventricle * The left ventricle is grossly normal size. * There is normal left ventricular wall thickness. * Ejection Fraction = 60-65%. Right Ventricle * The right ventricle is grossly normal size. * The right ventricular systolic function is normal as assessed by tricuspid annular plane systolic excursion (TAPSE) (normal >1.5 cm). Atria * The left atrial size is normal. * Right atrial size is normal. * No ASD detected; PFO is not assessed. Mitral Valve * The mitral valve is grossly normal. * Mitral stenosis is absent. * There is trace mitral regurgitation. Tricuspid Valve * The tricuspid valve is not well visualized, but is grossly normal. * Significant tricuspid regurgitation is absent. Aortic Valve * The aortic valve opens well. * The aortic valve is trileaflet. * No hemodynamically significant valvular aortic stenosis. * There is no significant aortic regurgitation. Pulmonic Valve * The pulmonary valve is inadequately visualized, but the Doppler data is adequate for interpretation. * There is no pulmonic valvular stenosis. * There is no significant pulmonary regurgitation. Great Vessels * The aortic root and proximal ascending aorta are normal sized. Pericardium/Pleural * There is no pericardial effusion. Great Vessels * Normal inferior vena cava size and collapsability with sniff indicates a normal right atrial pressure of 3 mmHg EKG w suggestion of ST depression V4/5 at HR [address] ANGIOGRAPHY OF THE CHEST, PULMONARY EMBOLUS PROTOCOL CLINICAL HISTORY: Tachycardia and short of breath. COMPARISON STUDY: Chest radiograph July 28, 2017. TECHNIQUE: Following IV administration of 108 mL of Optiray-320, helical axial images of the chest were obtained utilizing the pulmonary embolus protocol. Maximal intensity projections and sagittal and coronal reformats were viewed on an independent 3D workstation. IV contrast was administered without complication. A dose lowering technique was utilized adhering to the principles of ALARA. CT DOSE: 320.25 mGy.cm FINDINGS: No pulmonary emboli are identified although the segmental and subsegmental pulmonary arteries are suboptimally assessed due to respiratory motion. The size of the heart is normal. There is no pericardial effusion. There is no evidence for thoracic aortic dissection. There is no thoracic lymphadenopathy. The central airways are patent. There is no consolidation to suggest pneumonia. No pneumothorax or pleural effusion is noted. Bony thorax and upper abdomen are unremarkable. IMPRESSION: 1. No pulmonary emboli identified although segmental and subsegmental pulmonary arteries suboptimally assessed due to respiratory motion. 2. No acute intrathoracic findings. Electronically signed by: Jt Zazueta M.D. 08/04/2017 5:18 PM Dictated Date/Time: 08/04/2017 5:10 PM Last 24 Hours Test 08/04/17 21:15 08/04/17 22:56 08/05/17 06:52 08/05/17 11:05 Influenza Type A (RT-PCR) Neg for Influ A Influenza Type B (RT-PCR) Neg for Influ B Troponin I < 0.015 ng/ml < 0.015 ng/ml White Blood Count 7.59 K/uL Red Blood Count 4.49 M/uL Hemoglobin 13.8 g/dL Hematocrit 39.4 % Mean Corpuscular Volume 87.8 fL Mean Corpuscular Hemoglobin 30.7 pg Mean Corpuscular Hemoglobin Concent 35.0 g/dl RDW Standard Deviation 39.8 fL RDW Coefficient of Variation 12.4 % Platelet Count 263 K/uL Mean Platelet Volume 8.7 fL Sodium Level 139 mmol/L Potassium Level 3.5 mmol/L Chloride Level 105 mmol/L Carbon Dioxide Level 25 mmol/L Anion Gap 9.0 mmol/L Blood Urea Nitrogen 7 mg/dl Creatinine 0.60 mg/dl Est Creatinine Clear Calc Drug Dose 91.0 ml/min Estimated GFR () 116.4 Estimated GFR (Non- 100.5 BUN/Creatinine Ratio 12.4 Random Glucose 116 mg/dl Calcium Level 8.9 mg/dl Free Thyroxine 1.34 ng/dl Free Triiodothyronine 4.71 pg/ml Consultations: cardiology Assessment & Plan 1. Tachycardia: The cause of the tachycardia is not clear. It does not seem to be an abnormal rhythm (it appears to be sinus tachycardia not an atrial tachycardia) although it could conceivably be an atrial tachycardia from near the sinus node but the weight is responding to beta blockade would be more consistent with a sinus tachycardia. She is also hypertensive. There does not appear a cardiac reason to cause this (her ejection fraction is good and she does not have an effusion), nor does there seem to be a pulmonary reason (CT scan was negative for PE). 2. Sinus tachycardia and hypertension: It is acting like a high catecholamine state, I do not know why she would have that. In the past she has not been tachycardic or hypertensive in our records, her daughter tells me that in her she is clinic she was not tachycardic or hypertensive until the visit that prompted the visit to the emergency room. I am not sure why she would have this. To confirm and we will need a 24-hour urine collection and I will order that. She apparently has a history of thyroid nodules, her TSH was normal but I am going to get a T4 and T3 to be sure but I do not think this is hyperthyroidism. I am going to increase her beta-doni. Thank you for allowing me to participate in her care. 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 nml as tested, alert, normal mood/affect , oriented x 3 Skin: normal color, warm/dry Hospital Course tachycardia/hypertension -new, but unclear provoking cause -no PE, no [place], no overt worrisome findings -TSH and free T4 normal, unclear if significant of free T3 elevation, but with thryoid nodules and this finding- possible that she was experiencing an episode related to hashimotos -- continue to follow thyroid levels and check antibodies as outpt -24hr urine to r/o pheo underway - to be completed as outpt -possibly in vague way related to recent acute illnesses and steroids and may simply fade out over time -for now metoprolol 50mg bid, close outpt f/u (if no inciting factors found, wean as tolerated, w/u further if unable to wean) EKG changes -ST depression at tachycardia - but no troponin elevation or echo changes (or characteristic symptoms) -not zero risk - does have (treated) hyperlipid - but also since CAD quite a common finding -- outpt stress echo after extensive discussions - safe to continue all of this as outpt w/u - PCP scheduled for sunday already - d/c on metoprolol Total Time Spent: Greater than 30 minutes This includes examination of the patient, discharge planning, medication reconciliation, and communication with other providers. Discharge Instructions Please refer to the electronic Patient Visit Report (Discharge Instructions) for additional information. Additional Copies To Jeet West M.D.
[2017-08-05] MEDS ORDERED: METOPROLOL TARTRATE 50 MG TAB PO SCH (21:00)
== END 2017-08-05 17:03 | disposition home or self-care (01) ==
LOC: C.EDB 15:19 → C.2T 19:33 → ENRESERV 19:43
PROVIDERS: ADMIT Internal Medicine Sports Medicine; ATTEND Family Medicine
DX: I16.0 Hypertensive urgency (principal); R00.0 Tachycardia, unspecified; R42 Dizziness and giddiness; I10 Essential (primary) hypertension; R94.31 Abnormal electrocardiogram [ECG] [EKG]; E78.00 Pure hypercholesterolemia, unspecified; E78.5 Hyperlipidemia, unspecified; J45.909 Unspecified asthma, uncomplicated; E03.9 Hypothyroidism, unspecified; Z82.49 Family history of ischemic heart disease and other diseases of the circulatory system; Z80.1 Family history of malignant neoplasm of trachea, bronchus and lung

== ENCOUNTER → 2017-08-06 | Outpatient (CLI) | payer OTHER ==
[~2017-08-06] MED LIST: CRS/10 PO; METO50TA16 PO
== END ==
LOC: C.LABSPEC 11:21
PROVIDERS: ATTEND Internal Medicine